=== PATIENT | male | born 1960 | race African-American/Black ===

== ENCOUNTER 2022-04-20 13:40 | Emergency (ER) | payer OTHER ==
[2022-04-20 14:21] VITALS: BP 104/67; PULSE 75; RESP 18; TEMP 98; BMI 34.4
[2022-04-20 15:22] LABS: BASO % 0.2 % (0-2.0); EOS % 1.7 % (0-4.5); HEMATOCRIT 41.3 % (35.4-49); HEMOGLOBIN 13.7 GM/dL (11.7-16.9); LYMPH % 14.2 % (8-40); MCH 28.2 pg (25.7-33.7); MCHC 33.2 g/dl (32.0-35.9); MEAN CELL VOLUME 84.9 fl (80-96); MEAN PLT VOLUME 7.6 fl (7.5-11.1); MONO % 11.2 % (3.8-10.2); NEUT % 72.7 % (42.8-82.8); PLATELET COUNT 426 10^3/uL (134-434); RBC 4.87 M/mm3 (4.00-5.60); RDW 14.1 % (11.9-15.9); WHITE BLOOD COUNT 7.7 K/mm3 (4.0-10.0)
[2022-04-20 15:35] LABS: CALCIUM 9.4 mg/dL (8.5-10.1)
[2022-04-20 15:36] LABS: ALBUMIN 3.6 g/dl (3.4-5.0); BLOOD UREA NITROGEN 29.4 mg/dL (7-18)
[2022-04-20 15:40] LABS: CREATININE 1.8 mg/dL (0.55-1.3)
[2022-04-20 15:41] LABS: BILIRUBIN,TOTAL 0.4 mg/dL (0.2-1); TOT PROT 9.1 g/dl (6.4-8.2)
== END 2022-04-20 20:02 | disposition home or self-care (01) ==
LOC: JER 13:40
DX: R55 Syncope and collapse (principal); R42 Dizziness and giddiness; T50.995A Adverse effect of other drugs, medicaments and biological substances, initial encounter
CPT/HCPCS: 0241U-QW; 36415; 71045-TC-FY; 80053; 82962; 84484; 85025; 93005; 93010; 99285-25

== ENCOUNTER 2022-11-24 23:08 | Observation (INO) | payer OTHER ==
[2022-11-24] MEDS ORDERED: ACETAMINOPHEN 500 MG TABLET (FP) PO ONE ×2 (23:50→23:53)
[2022-11-24 23:58] LABS: VENOUS BASE EXCESS 0.3 mmol/L (-2-2); VENOUS O2 SATURATION 71.5 % (70-80); VENOUS PCO2 55.3 mmHg (38-52); VENOUS PH 7.316 (7.310-7.410)
[2022-11-25] LABS: BASO % 0.4 % (0-2.0); EOS % 5.2 % (0-4.5); HEMATOCRIT 38.2 % (35.4-49); HEMOGLOBIN 13.5 GM/dL (11.7-16.9); LYMPH % 16.2 % (8-40); MCH 31.8 pg (25.7-33.7); MCHC 35.3 g/dl (32.0-35.9); MEAN CELL VOLUME 90.2 fl (80-96); MEAN PLT VOLUME 7.2 fl (7.5-11.1); NEUT % 69.2 % (42.8-82.8); PLATELET COUNT 253 10^3/uL (134-434); RBC 4.23 M/mm3 (4.00-5.60); RDW 13.8 % (11.9-15.9); WHITE BLOOD COUNT 5.3 K/mm3 (4.0-10.0)
[2022-11-25] MEDS ORDERED: ACETAMINOPHEN 325 MG TABLET (FP) ONE (00:03)
[2022-11-25 00:14] LABS: POTASSIUM 4.1 mmol/L (3.5-5.1)
[2022-11-25 00:16] LABS: CALCIUM 8.9 mg/dL (8.5-10.1)
[2022-11-25 00:17] LABS: ALBUMIN 3.5 g/dl (3.4-5.0); BLOOD UREA NITROGEN 17.8 mg/dL (7-18); MAGNESIUM 1.8 mg/dL (1.8-2.4)
[2022-11-25 00:20] LABS: CREATININE 1.2 mg/dL (0.55-1.3)
[2022-11-25 00:21] LABS: BILIRUBIN,TOTAL 0.5 mg/dL (0.2-1); INR 1.15 (0.83-1.09); PROTHROMBIN TIME (PATIENT) 13.3 SEC (9.7-13.0); TOT PROT 8.5 g/dl (6.4-8.2)
[2022-11-25 00:23] LABS: ACTIVATED PTT 26.9 SECONDS (25.2-36.5)
[2022-11-25 00:25] LABS: N-TERMINAL BNP 1318.6 pg/ml (5-125)
[2022-11-25] MEDS ORDERED: FUROSEMIDE 40 MG/4 ML INJECTABLE VIAL IVPUSH ONE (00:57)
[2022-11-25] MEDS ORDERED: FUROSEMIDE 40 MG/4 ML INJECTABLE VIAL ONE (01:04)
[2022-11-25] MEDS ORDERED: ASPIRIN 325 MG ENTERIC COATED TABLET (FP) PO ONE (01:54)
[2022-11-25] MEDS ORDERED: ASPIRIN 325 MG ENTERIC COATED TABLET (FP) ONE (02:12)
[2022-11-25 05:16] VITALS: BMI 36.3
[2022-11-25 07:12] LABS: POTASSIUM 3.8 mmol/L (3.5-5.1)
[2022-11-25 07:14] LABS: CALCIUM 8.8 mg/dL (8.5-10.1)
[2022-11-25 07:15] LABS: ALBUMIN 3.5 g/dl (3.4-5.0); BLOOD UREA NITROGEN 20.2 mg/dL (7-18); MAGNESIUM 1.6 mg/dL (1.8-2.4)
[2022-11-25 07:18] LABS: CREATININE 1.1 mg/dL (0.55-1.3); PHOSPHOROUS 3.6 mg/dL (2.5-4.9)
[2022-11-25 07:20] LABS: BILIRUBIN,TOTAL 0.6 mg/dL (0.2-1)
[2022-11-25 07:29] LABS: HEMATOCRIT 36.7 % (35.4-49); HEMOGLOBIN 13.1 GM/dL (11.7-16.9); MCH 32.2 pg (25.7-33.7); MCHC 35.7 g/dl (32.0-35.9); MEAN CELL VOLUME 90.2 fl (80-96); MEAN PLT VOLUME 7.7 fl (7.5-11.1); PLATELET COUNT 233 10^3/uL (134-434); RBC 4.07 M/mm3 (4.00-5.60); RDW 13.8 % (11.9-15.9); WHITE BLOOD COUNT 5.1 K/mm3 (4.0-10.0)
[2022-11-25] MEDS: INSULIN (LEVEMIR) 100 UNITS/ML UNITS SQ SCH (08:06)
[2022-11-25] MEDS: FOLIC ACID 1 MG TABLET (FP) PO SCH ×2 (08:06→10:49)
[2022-11-25] MEDS: FUROSEMIDE 40 MG/4 ML INJECTABLE VIAL IVPUSH SCH ×3 (08:06→19:38)
[2022-11-25] MEDS ORDERED: FUROSEMIDE 40 MG/4 ML INJECTABLE VIAL IVPUSH SCH (10:00)
[2022-11-25] MEDS ORDERED: METHOTREXATE 2.5 MG TABLET PO SCH (12:15)
[2022-11-25] MEDS: ACETAMINOPHEN 325 MG TABLET (FP) PO PRN ×2 (12:27→23:20)
[2022-11-25] MEDS: ENOXAPARIN NA (PORCINE) 40 MG/0.4 ML DISP.SYRIN SQ SCH (12:28)
[2022-11-25] MEDS: EPLERENONE 25 MG TABLET PO SCH (17:23)
[2022-11-25] MEDS ORDERED: MAGNESIUM 2GM/50ML STERILE WATER IVPB IVPB ONE (18:22)
[2022-11-25] MEDS: hydrALAZINE HCL 25 MG TABLET (FP) PO SCH (21:07)
[2022-11-25] MEDS: guaiFENesin/D-METHORPHAN TAB.ER.12H PO SCH (21:08)
[2022-11-25] MEDS: ATORVASTATIN CA 40 MG TABLET (FP) PO SCH (21:08)
[2022-11-25] MEDS: ISOSORBIDE DINITRATE 10 MG TABLET PO SCH (21:08)
[2022-11-25] MEDS ORDERED: HYDRALAZINE PO SCH (22:00)
[2022-11-25] MEDS ORDERED: [UNRECOGNIZED DRUG - OTHER] PO SCH (22:00)
[2022-11-25] MEDS ORDERED: ISOSORBIDE DINIT PO SCH (22:00)
[2022-11-25] MEDS: BENZOCAINE/MENTH/CETYLPYRD CL 1 EACH LOZENGE MM PRN (23:21)
[2022-11-26] MEDS: hydrALAZINE HCL 25 MG TABLET (FP) PO SCH ×2 (05:06→14:06)
[2022-11-26] MEDS: ISOSORBIDE DINITRATE 10 MG TABLET PO SCH ×2 (05:06→14:06)
[2022-11-26] MEDS: ACETAMINOPHEN 325 MG TABLET (FP) PO PRN (05:31)
[2022-11-26] MEDS ORDERED: ONDANSETRON 4 MG/2 ML VIAL IVPUSH ONE (06:36)
[2022-11-26 07:19] LABS: POTASSIUM 4.3 mmol/L (3.5-5.1)
[2022-11-26 07:25] LABS: CALCIUM 9.1 mg/dL (8.5-10.1)
[2022-11-26 07:26] LABS: BLOOD UREA NITROGEN 19.4 mg/dL (7-18)
[2022-11-26 07:29] LABS: CREATININE 1.3 mg/dL (0.55-1.3); PHOSPHOROUS 4.4 mg/dL (2.5-4.9)
[2022-11-26] MEDS: FUROSEMIDE 40 MG/4 ML INJECTABLE VIAL IVPUSH SCH ×2 (10:45→21:05)
[2022-11-26] MEDS: FOLIC ACID 1 MG TABLET (FP) PO SCH (10:46)
[2022-11-26] MEDS: ENOXAPARIN NA (PORCINE) 40 MG/0.4 ML DISP.SYRIN SQ SCH (10:46)
[2022-11-26] MEDS: INSULIN (LEVEMIR) 100 UNITS/ML UNITS SQ SCH (10:46)
[2022-11-26] MEDS: guaiFENesin/D-METHORPHAN TAB.ER.12H PO SCH ×2 (10:47→21:11)
[2022-11-26] MEDS ORDERED: SODIUM CHLORIDE 250 ML IV STA (11:20)
[2022-11-26] MEDS: EPLERENONE 25 MG TABLET PO SCH (11:54)
[2022-11-26] MEDS: ATORVASTATIN CA 40 MG TABLET (FP) PO SCH (21:05)
[2022-11-26 21:07] LABS: CYCLIC CITRULLINE PEPTIDE AB >250 units (0-19)
[2022-11-26] MEDS: BENZOCAINE/MENTH/CETYLPYRD CL 1 EACH LOZENGE MM PRN (21:12)
[2022-11-27] MEDS: ACETAMINOPHEN 325 MG TABLET (FP) PO PRN (04:22)
[2022-11-27 08:37] VITALS: BP 129/80; PULSE 73; RESP 18; TEMP 98.4
[2022-11-27] MEDS: INSULIN (LEVEMIR) 100 UNITS/ML UNITS SQ SCH (09:18)
[2022-11-27] MEDS: ENOXAPARIN NA (PORCINE) 40 MG/0.4 ML DISP.SYRIN SQ SCH (09:19)
[2022-11-27] MEDS: FOLIC ACID 1 MG TABLET (FP) PO SCH (09:19)
[2022-11-27] MEDS: EPLERENONE 25 MG TABLET PO SCH (09:20)
[2022-11-27] MEDS: guaiFENesin/D-METHORPHAN TAB.ER.12H PO SCH (09:23)
[2022-11-27] MEDS ORDERED: FUROSEMIDE 40 MG/4 ML INJECTABLE VIAL IVPUSH SCH (10:00)
[2022-11-29] MEDS ORDERED: METHOTREXATE 2.5 MG TABLET PO SCH (10:00)
== END 2022-11-27 13:04 | disposition home or self-care (01) ==
LOC: JER 23:08 → JERBED 11-25 01:20 → UNDOADMOB 11-25 01:20 → INTOOBSV 11-25 01:20 → J4S 11-25 04:39 → JERBED 11-25 04:39 → J4S 11-25 15:41
PROVIDERS: ADMIT Internal Medicine; ATTEND Internal Medicine
PROC: 3E033GC Introduction of Other Therapeutic Substance into Peripheral Vein, Percutaneous Approach (ICD-10-PCS; principal; 2022-11-25)
PROC: 3E0337Z Introduction of Electrolytic and Water Balance Substance into Peripheral Vein, Percutaneous Approach (ICD-10-PCS; 2022-11-25)
PROC: 3E013VG Introduction of Insulin into Subcutaneous Tissue, Percutaneous Approach (ICD-10-PCS; 2022-11-25)
PROC: 3E013GC Introduction of Other Therapeutic Substance into Subcutaneous Tissue, Percutaneous Approach (ICD-10-PCS; 2022-11-25)
DX: I50.23 Acute on chronic systolic (congestive) heart failure (principal); R07.89 Other chest pain; I11.0 Hypertensive heart disease with heart failure; E78.5 Hyperlipidemia, unspecified; I42.9 Cardiomyopathy, unspecified; E11.9 Type 2 diabetes mellitus without complications; M32.9 Systemic lupus erythematosus, unspecified; Z79.4 Long term (current) use of insulin; Z79.84 Long term (current) use of oral hypoglycemic drugs; Z88.8 Allergy status to other drugs, medicaments and biological substances; Z95.810 Presence of automatic (implantable) cardiac defibrillator
CPT/HCPCS: 0241U-QW; 36415; 71045-TC-FY; 80048; 80053; 82803; 82962; 83735; 83880; 84100; 84484; 85025; 85027; 85610; 85730; 86038; 86200; 86431; 93005; 93010; 93306-TC; 96361; 96372; 96374; 96375; 96376; 99285-25; G0378

== ENCOUNTER 2022-12-09 13:22 | Emergency (ER) | payer OTHER ==
[2022-12-09 13:35] VITALS: BMI 34.0
[2022-12-09 14:52] LABS: BASO % 0.4 % (0-2.0); EOS % 2.3 % (0-4.5); HEMATOCRIT 37.8 % (35.4-49); HEMOGLOBIN 13.2 GM/dL (11.7-16.9); LYMPH % 8.3 % (8-40); MCH 31.5 pg (25.7-33.7); MEAN CELL VOLUME 89.8 fl (80-96); MEAN PLT VOLUME 7.1 fl (7.5-11.1); MONO % 5.7 % (3.8-10.2); NEUT % 83.3 % (42.8-82.8); PLATELET COUNT 337 10^3/uL (134-434); RDW 12.8 % (11.9-15.9); WHITE BLOOD COUNT 7.3 K/mm3 (4.0-10.0)
[2022-12-09 15:01] LABS: INR 1.17 (0.83-1.09); PROTHROMBIN TIME (PATIENT) 13.6 SEC (9.7-13.0)
[2022-12-09 15:03] LABS: ACTIVATED PTT 27.1 SECONDS (25.2-36.5)
[2022-12-09 15:16] LABS: POTASSIUM 3.8 mmol/L (3.5-5.1)
[2022-12-09 15:18] LABS: CALCIUM 8.9 mg/dL (8.5-10.1)
[2022-12-09 15:19] LABS: ALBUMIN 3.2 g/dl (3.4-5.0); MAGNESIUM 1.9 mg/dL (1.8-2.4)
[2022-12-09 15:21] LABS: CREATININE 1.2 mg/dL (0.55-1.3)
[2022-12-09 15:23] LABS: BILIRUBIN,TOTAL 0.5 mg/dL (0.2-1); TOT PROT 8.7 g/dl (6.4-8.2)
[2022-12-09 15:23] LABS: PH,URINE 5.5 (5.0-8.0); URINE APPEARANCE Error; URINE BILIRUBIN NEGATIVE (NEGATIVE); URINE COLOR YELLOW; URINE GLUCOSE (UA) NEGATIVE (NEGATIVE); URINE KETONE TRACE (NEGATIVE); URINE LEUK ESTERASE NEGATIVE (NEGATIVE); URINE NITRITE NEGATIVE (NEGATIVE); URINE PROTEIN NEGATIVE (NEGATIVE)
[2022-12-09] MEDS ORDERED: ACETAMINOPHEN 1000 MG/100 ML BAG IVPB ONE (15:54)
[2022-12-09] MEDS ORDERED: ACETAMINOPHEN INJECTION 100 ML IVPB ONE (15:56)
[2022-12-09 18:18] VITALS: RESP 16; TEMP 98
[2022-12-09 18:20] VITALS: BP 113/88; PULSE 78
== END 2022-12-09 18:21 | disposition home or self-care (01) ==
LOC: JER 13:22
PROC: 3E033NZ Introduction of Analgesics, Hypnotics, Sedatives into Peripheral Vein, Percutaneous Approach (ICD-10-PCS; principal; 2022-12-09)
DX: R42 Dizziness and giddiness (principal); R53.81 Other malaise; Z20.822 Contact with and (suspected) exposure to COVID-19
CPT/HCPCS: 0241U-QW; 36415; 71045-TC-FY; 80053; 81003; 82550; 83735; 84484; 85025; 85610; 85730; 87086; 87651; 93005; 93010; 99285-25

== ENCOUNTER 2023-05-05 18:04 | Emergency (ER) | payer OTHER ==
[2023-05-05 18:11] VITALS: TEMP 98.1; BMI 37.5
[2023-05-05 19:10] LABS: HEMATOCRIT 38.6 % (35.4-49); HEMOGLOBIN 13.2 GM/dL (11.7-16.9); MCH 30.7 pg (25.7-33.7); MCHC 34.1 g/dl (32.0-35.9); MEAN CELL VOLUME 89.9 fl (80-96); MEAN PLT VOLUME 8.2 fl (7.5-11.1); PLATELET COUNT 226 10^3/uL (134-434); RDW 14.1 % (11.9-15.9); WHITE BLOOD COUNT 5.5 K/mm3 (4.0-10.0)
[2023-05-05 19:31] LABS: POTASSIUM 4.2 mmol/L (3.5-5.1)
[2023-05-05 19:33] LABS: ALBUMIN 3.2 g/dl (3.4-5.0); CALCIUM 8.5 mg/dL (8.5-10.1)
[2023-05-05 19:34] LABS: BLOOD UREA NITROGEN 12.7 mg/dL (7-18)
[2023-05-05 19:37] LABS: CREATININE 1.1 mg/dL (0.55-1.3)
[2023-05-05 19:38] LABS: BILIRUBIN,TOTAL 0.6 mg/dL (0.2-1); TOT PROT 7.2 g/dl (6.4-8.2)
[2023-05-05 20:02] VITALS: BP 106/69; PULSE 71; RESP 18
== END 2023-05-05 22:38 | disposition home or self-care (01) ==
LOC: JER 18:04
DX: R55 Syncope and collapse (principal)
CPT/HCPCS: 36415; 80053; 82962; 84484; 85027; 93005; 93010; 99284-25

== ENCOUNTER 2023-06-21 07:28 | Inpatient (IN) | payer OTHER ==
[2023-06-21 07:41] VITALS: BMI 35.1
[2023-06-21] MEDS ORDERED: ACETAMINOPHEN 500 MG TABLET (FP) PO ONE (08:41)
[2023-06-21] MEDS ORDERED: ALBUTEROL SO4 2.5/IPRATROPIUM 0.5 INH SOL 3 ML VIAL.NEB. NEB ONE ×3 (08:49→09:22)
[2023-06-21] MEDS ORDERED: ACETAMINOPHEN 500 MG TABLET (FP) ONE (08:51)
[2023-06-21] MEDS: ALBUTEROL SO4 2.5/IPRATROPIUM 0.5 INH SOL 3 ML VIAL.NEB. NEB SCH ×5 (08:58→22:41)
[2023-06-21] MEDS ORDERED: FUROSEMIDE 40 MG/4 ML INJECTABLE VIAL ONE (10:03)
[2023-06-21 10:13] LABS: BASO % 0.3 % (0-2.0); EOS % 5.4 % (0-4.5); HEMATOCRIT 38.2 % (35.4-49); HEMOGLOBIN 13.2 GM/dL (11.7-16.9); MCHC 34.7 g/dl (32.0-35.9); MONO % 11.8 % (3.8-10.2); NEUT % 61.5 % (42.8-82.8); PLATELET COUNT 200 10^3/uL (134-434); RBC 4.15 M/mm3 (4.00-5.60); RDW 13.6 % (11.9-15.9); WHITE BLOOD COUNT 5.9 K/mm3 (4.0-10.0)
[2023-06-21] MEDS: FUROSEMIDE 40 MG/4 ML INJECTABLE VIAL IVPUSH SCH (10:17)
[2023-06-21 10:18] LABS: INR 1.18 (0.83-1.09); PROTHROMBIN TIME (PATIENT) 13.7 SEC (9.7-13.0)
[2023-06-21 10:21] LABS: ACTIVATED PTT 26.7 SECONDS (25.2-36.5)
[2023-06-21 10:30] LABS: POTASSIUM 5.4 mmol/L (3.5-5.1)
[2023-06-21 10:32] LABS: CALCIUM 8.7 mg/dL (8.5-10.1)
[2023-06-21 10:33] LABS: ALBUMIN 3.3 g/dl (3.4-5.0); MAGNESIUM 1.7 mg/dL (1.8-2.4)
[2023-06-21 10:36] LABS: CREATININE 1.1 mg/dL (0.55-1.3)
[2023-06-21 10:37] LABS: TOT PROT 7.7 g/dl (6.4-8.2)
[2023-06-21 10:38] LABS: BILIRUBIN,TOTAL 0.6 mg/dL (0.2-1)
[2023-06-21 10:41] LABS: N-TERMINAL BNP 2436.3 pg/ml (5-125)
[2023-06-21 11:15] LABS: PH,URINE 5.5 (5.0-8.0); URINE APPEARANCE CLEAR; URINE BILIRUBIN NEGATIVE (NEGATIVE); URINE COLOR YELLOW; URINE GLUCOSE (UA) NEGATIVE (NEGATIVE); URINE KETONE NEGATIVE (NEGATIVE); URINE LEUK ESTERASE NEGATIVE (NEGATIVE); URINE NITRITE NEGATIVE (NEGATIVE); URINE PROTEIN TRACE (NEGATIVE); URINE UROBILINOGEN 0.2 mg/dL (0.2-1.0)
[2023-06-21] MEDS ORDERED: ISOSORBIDE DINIT PO SCH (14:00)
[2023-06-21] MEDS ORDERED: HYDRALAZINE PO SCH (14:00)
[2023-06-21] MEDS ORDERED: [UNRECOGNIZED DRUG - OTHER] PO SCH (14:00)
[2023-06-21] MEDS: methylPREDNISolone NA SUCC 40 MG/1 ML VIAL IVPUSH SCH (15:43)
[2023-06-21] MEDS: INSULIN SLIDING SCALE (NOVOLOG) 1 VIAL SQ SCH (17:07)
[2023-06-21] MEDS ORDERED: ISOSORBIDE DINITRATE 20 MG TABLET PO SCH (18:00)
[2023-06-21] MEDS ORDERED: INSULIN (LEVEMIR) 100 UNITS/ML UNITS SQ SCH (22:00)
[2023-06-21] MEDS: ATORVASTATIN CA 40 MG TABLET (FP) PO SCH (22:13)
[2023-06-21] MEDS: HEPARIN NA (PORCINE) 5,000 UNITS/ML 1ML VIAL SQ SCH (22:14)
[2023-06-21] MEDS: ACETAMINOPHEN 500 MG TABLET (FP) PO PRN (23:34)
[2023-06-22] MEDS: ALBUTEROL SO4 2.5/IPRATROPIUM 0.5 INH SOL 3 ML VIAL.NEB. NEB SCH ×4 (07:35→19:26)
[2023-06-22] MEDS: INSULIN SLIDING SCALE (NOVOLOG) 1 VIAL SQ SCH ×3 (07:49→17:45)
[2023-06-22] MEDS ORDERED: INSULIN (LEVEMIR) 100 UNITS/ML UNITS SQ SCH (08:35)
[2023-06-22] MEDS: ACETAMINOPHEN 500 MG TABLET (FP) PO PRN (08:55)
[2023-06-22] MEDS: ISOSORBIDE DINITRATE 20 MG TABLET PO SCH ×3 (09:00→17:51)
[2023-06-22] MEDS: hydrALAZINE HCL 25 MG TABLET (FP) PO SCH ×3 (09:01→17:56)
[2023-06-22] MEDS: methylPREDNISolone NA SUCC 40 MG/1 ML VIAL IVPUSH SCH (09:48)
[2023-06-22] MEDS: FUROSEMIDE 40 MG/4 ML INJECTABLE VIAL IVPUSH SCH (09:48)
[2023-06-22] MEDS: FOLIC ACID 1 MG TABLET (FP) PO SCH (09:48)
[2023-06-22] MEDS: EPLERENONE 25 MG TABLET PO SCH (09:49)
[2023-06-22] MEDS: HEPARIN NA (PORCINE) 5,000 UNITS/ML 1ML VIAL SQ SCH (09:49)
[2023-06-22 09:58] LABS: BASO % 0.1 % (0-2.0); EOS % 0.4 % (0-4.5); HEMATOCRIT 37.2 % (35.4-49); HEMOGLOBIN 12.9 GM/dL (11.7-16.9); LYMPH % 11.4 % (8-40); MCH 31.6 pg (25.7-33.7); MCHC 34.6 g/dl (32.0-35.9); MEAN CELL VOLUME 91.3 fl (80-96); MEAN PLT VOLUME 7.7 fl (7.5-11.1); MONO % 12.5 % (3.8-10.2); NEUT % 75.6 % (42.8-82.8); PLATELET COUNT 202 10^3/uL (134-434); RBC 4.08 M/mm3 (4.00-5.60); WHITE BLOOD COUNT 8.8 K/mm3 (4.0-10.0)
[2023-06-22] MEDS ORDERED: TORSEMIDE 60 MG PO SCH (10:00)
[2023-06-22 10:18] LABS: POTASSIUM 3.7 mmol/L (3.5-5.1)
[2023-06-22 10:21] LABS: CALCIUM 8.7 mg/dL (8.5-10.1)
[2023-06-22 10:22] LABS: BLOOD UREA NITROGEN 18.1 mg/dL (7-18)
[2023-06-22 10:24] LABS: CREATININE 0.9 mg/dL (0.55-1.3)
[2023-06-22] MEDS: guaiFENesin/D-M SUGAR-FREE/ACLHOL-FREE (200 MG/10 MG) 5 ML PO PRN (13:13)
[2023-06-22 14:55] VITALS: RESP 18
[2023-06-22] MEDS ORDERED: methylPREDNISolone NA SUCC 40 MG/1 ML VIAL IVPUSH SCH (18:00)
[2023-06-22] MEDS: ATORVASTATIN CA 40 MG TABLET (FP) PO SCH (22:55)
[2023-06-23] MEDS: HEPARIN NA (PORCINE) 5,000 UNITS/ML 1ML VIAL SQ SCH ×2 (00:20→10:26)
[2023-06-23] MEDS: guaiFENesin/D-M SUGAR-FREE/ACLHOL-FREE (200 MG/10 MG) 5 ML PO PRN (03:00)
[2023-06-23] MEDS: INSULIN SLIDING SCALE (NOVOLOG) 1 VIAL SQ SCH ×2 (06:27→12:08)
[2023-06-23] MEDS: ALBUTEROL SO4 2.5/IPRATROPIUM 0.5 INH SOL 3 ML VIAL.NEB. NEB SCH ×4 (07:25→15:12)
[2023-06-23 09:36] LABS: HEMATOCRIT 38.7 % (35.4-49); HEMOGLOBIN 13.4 GM/dL (11.7-16.9); MCH 31.7 pg (25.7-33.7); MCHC 34.6 g/dl (32.0-35.9); MEAN CELL VOLUME 91.9 fl (80-96); MEAN PLT VOLUME 7.4 fl (7.5-11.1); PLATELET COUNT 222 10^3/uL (134-434); RBC 4.21 M/mm3 (4.00-5.60); RDW 13.8 % (11.9-15.9); WHITE BLOOD COUNT 9.4 K/mm3 (4.0-10.0)
[2023-06-23 09:58] LABS: POTASSIUM 3.7 mmol/L (3.5-5.1)
[2023-06-23] MEDS ORDERED: FUROSEMIDE 40 MG/4 ML INJECTABLE VIAL IVPUSH SCH (10:00)
[2023-06-23] MEDS ORDERED: TORSEMIDE 20 MG TABLET (FP) PO SCH (10:00)
[2023-06-23] MEDS ORDERED: predniSONE 40 MG, predniSONE 10 MG PO SCH (10:00)
[2023-06-23] MEDS ORDERED: TORSEMIDE 60 MG PO SCH (10:00)
[2023-06-23] MEDS ORDERED: predniSONE 20 MG TABLET (UD) PO SCH (10:00)
[2023-06-23 10:03] LABS: BLOOD UREA NITROGEN 22.1 mg/dL (7-18); MAGNESIUM 1.7 mg/dL (1.8-2.4)
[2023-06-23 10:06] LABS: PHOSPHOROUS 3.9 mg/dL (2.5-4.9)
[2023-06-23] MEDS: ACETAMINOPHEN 500 MG TABLET (FP) PO PRN (10:26)
[2023-06-23] MEDS: FOLIC ACID 1 MG TABLET (FP) PO SCH (10:27)
[2023-06-23] MEDS: hydrALAZINE HCL 25 MG TABLET (FP) PO SCH ×2 (10:27→13:07)
[2023-06-23] MEDS: EPLERENONE 25 MG TABLET PO SCH (10:28)
[2023-06-23] MEDS: ISOSORBIDE DINITRATE 20 MG TABLET PO SCH ×2 (10:28→13:07)
[2023-06-23] MEDS ORDERED: guaiFENesin/D-M SUGAR-FREE/ACLHOL-FREE 5 ML UNIT DOSE PO PRN (10:50)
[2023-06-23 16:40] VITALS: BP 112/62; PULSE 76; TEMP 98
== END 2023-06-23 16:44 | disposition home or self-care (01) | DRG 194 ==
LOC: JER 07:28 → JERBED 12:48 → J5S 15:11
PROVIDERS: ADMIT Internal Medicine; ATTEND Internal Medicine
DX: I11.0 Hypertensive heart disease with heart failure (principal); I42.9 Cardiomyopathy, unspecified; E11.9 Type 2 diabetes mellitus without complications; J06.9 Acute upper respiratory infection, unspecified; J44.9 Chronic obstructive pulmonary disease, unspecified; I50.43 Acute on chronic combined systolic (congestive) and diastolic (congestive) heart failure; G47.33 Obstructive sleep apnea (adult) (pediatric); E66.9 Obesity, unspecified; Z68.35 Body mass index [BMI] 35.0-35.9, adult
CPT/HCPCS: 0241U-QW; 36415; 71045-TC-FY; 80048; 80053; 81003; 82962; 83735; 83880; 84100; 84484; 85025; 85027; 85610; 85730; 87070; 87086; 87205; 93005; 93010; 94640; 94761; 99291; J1644